=== PATIENT | female | born 1995 | race Caucasian/White ===

== ENCOUNTER 2018-12-25 20:21 | Emergency (ER) | payer BC ==
--- NOTE | 2018-12-25 20:32 | EDM.PDOC ---
ED HPI GENERAL MEDICAL PROBLEM - General Chief Complaint: General Stated Complaint: 14KWKS AND HAVING ABD PAIN Time Seen by Provider: 12/25/18 20:32 Source of Information: Reports: Patient History Limitations: Reports: No Limitations - History of Present Illness INITIAL COMMENTS - FREE TEXT/NARRATIVE: HISTORY AND PHYSICAL: History of present illness: Patient is a 23 year old female who presents to the emergency room with complaints of constipation, abdominal pain and possible vaginal bleeding. She states that her last "normal" bowel movement was on December 12 right before her initial OB appointment. She states that she has tried 1 dose of MiraLAX and did have a small BM but felt that she was still "backed up". Yesterday she tried to take some milk of magnesia and sat on the toilet. She states that she was "in so much pain that I puked it up". Today she wanted to be evaluated in concerns that she had noticed some blood on the toilet paper when she wiped, believes it was from her vagina. Review of systems: As per history of present illness and below otherwise all systems reviewed and negative. Past medical history: As per history of present illness and as reviewed below otherwise noncontributory. Surgical history: As per history of present illness and as reviewed below otherwise noncontributory. Social history: See social history for further information Family history: As per history of present illness and as reviewed below otherwise noncontributory. Physical exam: General: Well-developed and well-nourished 23-year-old female. Alert and oriented. Nontoxic appearing and in no acute distress. HEENT: Atraumatic, normocephalic, pupils equal and reactive bilaterally, negative for conjunctival pallor or scleral icterus, mucous membranes moist, TMs normal bilaterally, throat clear, neck supple, nontender, trachea midline. No drooling or trismus noted. No meningeal signs. No hot potato voice noted. Lungs: Clear to auscultation, breath sounds equal bilaterally, chest nontender. Heart: S1S2, regular rate and rhythm without overt murmur Abdomen: Soft, nondistended, nontender. Negative for masses or hepatosplenomegaly. Negative for costovertebral tenderness. Pelvis: Stable nontender. Genitourinary: This was done with consent and a foundry hand at the bedside. There is no blood in the vaginal vault. Cervical OS is closed. Patient tolerated exam well. Rectal: No obvious hemorrhoids are noted. Good rectal tone. Skin: Intact, warm, dry. No lesions or rashes noted. Extremities: Atraumatic, moves all extremities per self without difficulty or deficits, negative for cords or calf pain. Neurovascular unremarkable. Neuro: Awake, alert, oriented. Cranial nerves II through XII unremarkable. Cerebellum unremarkable. Motor and sensory unremarkable throughout. Exam nonfocal. Notes: heart tones of 150 Dr. Gutierrez, patient's ELECTROMEDICAL SERVICE ENGINEER and person sap treasury consultant was consulted on this patient. She recommended giving the patient milk of Magnesia until she has a satisfactory bowel movement. Then after her MiraLAX daily or Colace 100 mg twice daily. Patient states that she lives about 45 minutes away and would prefer to do the milk of magnesia at home if she does not have any nausea at this time. She will call Dr. Gutierrez's office in the morning for follow-up if she does not have a bowel movement. Supportive care measures were reviewed and discussed. Voices understanding and is agreeable to plan of care. Denies any further questions or concerns at this time. Diagnostics: Heart Tones Therapeutics: MOM, Enema Prescription: None Impression: Constipation in Plan: 1. Pelvic rest until you talk to Dr Gutierrez. 2. Take the Milk of Magnesia as directed until you have results. There after please take either Miralax one capful daily OR Colace 100mg twice daily (to keep you regular). Increase your oral fluids. 3. Call Dr Fields office as we discussed. Return to the ED as needed and as discussed. Definitive disposition and diagnosis as appropriate pending reevaluation and review of above. - Related Data Allergies Allergy/AdvReac Type Severity Reaction Status Date / Time Latex, Natural Rubber Allergy Other Verified 12/25/18 20:32 Home Meds: Home Meds Ondansetron [Zofran ODT] 1 tab ASDIRECTED PRN 12/25/18 [History] PNV95/Ferrous Fumarate/FA [ Vitamin Tablet] 1 each PO DAILY 12/25/18 [ History] ED ROS GENERAL - Review of Systems Review Of Systems: Comprehensive ROS is negative, except as noted in HPI. ED EXAM, GENERAL - Physical Exam Exam: See Below (See dictation) Course - Vital Signs Last Recorded V/S: Last Vital Signs Temp 97.2 F 12/25/18 20:30 Pulse 83 12/25/18 20:30 Resp 18 12/25/18 20:30 BP 122/71 12/25/18 21:22 Pulse Ox 99 12/25/18 20:30 - Orders/Labs/Meds Orders: Active Orders 24 hr Category Date Time Status Heart Tones [ Heart Rate] [RC] Click to Edit Care 12/25/18 21:00 Active Meds: Medications Discontinued Medications Generic Name Dose Route Start Last Admin Trade Name Aimee PRN Reason Stop Dose Admin Magnesium Hydroxide 30 ml 12/25/18 21:00 12/25/18 21:13 Milk Of Magnesia PO 12/25/18 21:01 Not Given ONETIME ONE Departure - Departure Time of Disposition: 21:15 Disposition: Home, Self-Care 01 Clinical Impression: Constipation during Qualifiers: Trimester: second trimester Qualified Code(s): O99.612 - Diseases of the digestive system complicating , second trimester; K59.00 - Constipation , unspecified - Discharge Information Instructions: Constipation, Adult, [id number] Referrals: PCP,None [Primary Care Provider] - Forms: ED Department Discharge Additional Instructions: The following information is given to patients seen in the emergency department who are being discharged to home. This information is to outline your options for follow-up care. We provide all patients seen in our emergency department with a follow-up referral. The need for follow-up, as well as the timing and circumstances, are variable depending upon the specifics of your emergency department visit. If you don't have a primary care physician on staff, we will provide you with a referral. We always advise you to contact your personal physician following an emergency department visit to inform them of the circumstance of the visit and for follow-up with them and/or the need for any referrals to a consulting specialist. The emergency department will also refer you to a specialist when appropriate. This referral assures that you have the opportunity for follow-up care with a specialist. All of these measure are taken in an effort to provide you with optimal care, which includes your follow-up. Under all circumstances we always encourage you to contact your private physician who remains a resource for coordinating your care. When calling for follow-up care, please make the office aware that this follow-up is from your recent emergency room visit. If for any reason you are refused follow-up, please contact the [facility] at and asked to speak to the emergency department charge nurse. [facility] [address] [place] [address] [address] 1. Pelvic rest until you talk to Dr Gutierrez. 2. Take the Milk of Magnesia as directed until you have results. There after please take either Miralax one capful daily OR Colace 100mg twice daily (to keep you regular). Increase your oral fluids. 3. Call Dr Fields office as we discussed. Return to the ED as needed and as discussed. - My Orders Last 24 Hours: My Active Orders 12/25/18 21:00 Heart Tones [ Heart Rate] [RC] Click to Edit - Assessment/Plan Last 24 Hours: My Active Orders 12/25/18 21:00 Heart Tones [ Heart Rate] [RC] Click to Edit
[2018-12-25] MEDS ORDERED: Magnesium Hydroxide 400 MG/5 ML Susp 30 ML Cup PO ONE (21:00)
== END 2018-12-25 21:23 | disposition home or self-care (01) ==
LOC: MW.ED 20:21
DX: O99.612 Diseases of the digestive system complicating pregnancy, second trimester (principal); K59.00 Constipation, unspecified; Z3A.14 14 weeks gestation of pregnancy; Z91.040 Latex allergy status
CPT/HCPCS: 99283

== ENCOUNTER 2019-05-02 22:15 | Observation (INO) | payer BC ==
--- NOTE | 2019-05-03 00:59 | US ---
INDICATION: Amniotic fluid and cervical length assessment TECHNIQUE: Ultrasound limited OB pelvis transabdominal. Real-time schmidt-scale imaging of the fetus was performed. COMPARISON: 04/29/2019 FINDINGS: Sonographic imaging demonstrates a single intrauterine gestation. Biometric measurements were not performed. heart rate: 163 bpm Orientation: Cephalic Amniotic fluid: single deepest pocket (SDP) 3.4 cm Cervix: 2.6 cm in length IMPRESSION: 1. The cervix measures 2.6 cm in length. 2. Single deepest pocket of amniotic fluid measures 3.4 cm. Dictated by Baljeet Lewis MD @ 05/03/2019 12:57:30 AM Dictated by: Baljeet Lewis MD @ 05/03/2019 00:58:04 (Electronically Signed)
== END 2019-05-03 01:15 | disposition home or self-care (01) ==
LOC: MW.OB 22:15 → MW.OBCHECK 22:15 → MW.OB 23:45
PROVIDERS: ADMIT Obstetrics & Gynecology; ATTEND Obstetrics & Gynecology
DX: O99.89 Other specified diseases and conditions complicating pregnancy, childbirth and the puerperium (principal); N89.8 Other specified noninflammatory disorders of vagina; R10.2 Pelvic and perineal pain; Z3A.32 32 weeks gestation of pregnancy
CPT/HCPCS: 59025; 76815; G0378

== ENCOUNTER 2019-05-09 15:05 | Observation (INO) | payer BC ==
[2019-05-09] MEDS: Lactated Ringers 1,000 ML IV SCH (16:37)
[2019-05-10] MEDS: Lactated Ringers 1,000 ML IV SCH ×3 (00:27→16:54)
[2019-05-10] MEDS ORDERED: hydrOXYzine Pamoate 25 MG Cap PO ONE (01:00)
--- NOTE | 2019-05-10 09:26 | US ---
Biophysical profile: Multiple real-time images were obtained. presentation: Cephalic Amniotic fluid: JULITO 7.10 cm Heart rate: 152 BPM Biophysical profile: breathing movement 2, movement 2, tone 2, amniotic fluid volume 2 Impression: 1. Single intrauterine fetus currently cephalic in presentation. 2. Low JULITO of 7.10 cm. 3. 8 out of 8 on biophysical profile. Diagnostic code #3 Study was dictated in MDT
[2019-05-11] MEDS: Lactated Ringers 1,000 ML IV SCH ×3 (01:00→18:53)
[2019-05-11] MEDS ORDERED: hydrOXYzine Pamoate 25 MG Cap PO PRN ×3 (04:57→21:55)
--- NOTE | 2019-05-11 09:16 | US ---
Biophysical profile: Multiple real-time images were obtained transabdominally. Comparison: Previous obstetrical ultrasounds are available, most recent study is 05/10/19. Dates: Current ultrasound: ANNETTA 06/18/19, gestational age 34 weeks 4 days presentation: Cephalic Amniotic fluid: JULITO of 8.95 cm Measurements: BPD: 8.6 by centimeter - 35 weeks 0 days Head circumference: 30.93 cm - 34 weeks 4 days Abdominal circumference: 30.15 cm - 34 weeks 1 day Femur length: 6.67 cm - 34 weeks 3 days Estimated weight: 2395 g (5 lbs. 4 oz.) Heart rate: 150 BPM Biophysical profile: breathing 2, movement 2, tone 2, amniotic fluid volume 2 Impression: 1. Single intrauterine fetus currently cephalic in presentation. Date as noted above. 2. JULITO of 8.95 cm which compares to 7.0 cm on previous study performed one day earlier. 3. 8 out of 8 on biophysical profile. Diagnostic code #3 Study was dictated in MDT
[2019-05-11] MEDS ORDERED: hydrOXYzine Pamoate 25 MG Cap PO ONE (22:13)
[2019-05-12] MEDS: Lactated Ringers 1,000 ML IV SCH (08:04)
--- NOTE | 2019-05-12 09:27 | US ---
Biophysical profile: Multiple real-time images were obtained transabdominally. Comparison: Previous obstetrical ultrasounds are available, most recent exam is 05/11/19. presentation: Cephalic Placenta: Anterior with no findings of placenta previa Amniotic fluid: JULITO 9.28 cm Heart rate: 150 BPM Biophysical profile: breathing 0, movement 2, tone 2, amniotic fluid volume 2 Impression: 1. Single intrauterine fetus currently cephalic in presentation. 2. 6 out of 8 on biophysical profile. 3. JULITO of 9.28 cm comparing to 8.95 cm on most recent study. Diagnostic code #5 Study was dictated in MDT
== END 2019-05-12 09:45 | disposition home or self-care (01) ==
LOC: MW.OB 15:43
PROVIDERS: ADMIT Obstetrics & Gynecology; ATTEND Obstetrics & Gynecology
DX: O41.03X0 Oligohydramnios, third trimester, not applicable or unspecified (principal); Z3A.33 33 weeks gestation of pregnancy
CPT/HCPCS: 59025; 76819; 96360; 96361; A9270; G0378; J7120